=== PATIENT | female | born 2000 | race Caucasian/White ===

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

== ENCOUNTER 2020-05-08 15:07 | Outpatient (CLI) | payer OTHER, MEDICAID ==
--- NOTE | 2020-05-08 16:28 | Ultrasound Report ---
PROCEDURE: Pelvic Complete INDICATIONS: Menometrorhagia, per order no TV TECHNIQUE: Real-time transabdominal scanning was performed of the pelvic organs, with image documentation. COMPARISON: Pelvic ultrasound 04/30/2015, 05/14/2015 FINDINGS: Uterus: Uterus is normal in size at 9.2 x 3.1 x 4.8 cm. Endometrium measures 5 mm in combined thick ness. IUD is noted in appropriate position. Ovaries: Right ovary measures 2.6 x 1.3 x 3.1 cm, volume 5.6 cc. Less than 12 follicles are noted. V ascular flow is present. Left ovary measures 3.7 x 1.9 x 3.2 cm, volume 11.6 cc. Less than 12 follicl es are noted. There is a focus of decreased echogenicity within the left ovary measuring 2.4 x 1.4 x 2.1 cm. Other: No free pelvic fluid. IMPRESSION: 1. IUD in appropriate position. 2. Simple left ovarian cyst. Reviewed by: Awilda Henderson MD on 05/08/2020 4:27 PM PST Approved by: Awilda Henderson MD on 05/08/2020 4:27 PM PST Station ID: [id number]
== END 2020-05-08 15:08 | disposition home or self-care (01) ==
LOC: DI 15:07
PROVIDERS: ATTEND Family Medicine
DX: N83.292 Other ovarian cyst, left side (principal); Z97.5 Presence of (intrauterine) contraceptive device

== ENCOUNTER 2020-06-23 18:01 | Outpatient (CLI) | payer OTHER, MEDICAID ==
[2020-06-26 15:12] LABS: DHEA SULFATE 209 mcg/dL (51-321)
== END 2020-06-23 18:02 | disposition home or self-care (01) ==
LOC: LAB.S 18:01
PROVIDERS: ATTEND Family Medicine
DX: N92.1 Excessive and frequent menstruation with irregular cycle (principal); E28.2 Polycystic ovarian syndrome; E55.9 Vitamin D deficiency, unspecified; D64.9 Anemia, unspecified
CPT/HCPCS: 36415; 81599; 82306; 82626; 82627; 82728; 83520

== ENCOUNTER 2020-06-24 17:58 | Outpatient (CLI) | payer OTHER, MEDICAID | END 2020-06-24 17:59 | disposition home or self-care (01) | LOC: LAB.S 17:58 | PROVIDERS: ATTEND Pediatrics | DX: E27.8 Other specified disorders of adrenal gland (principal) | CPT/HCPCS: 36415; 81599; 82157; 84143; 84402; 84403 ==

== ENCOUNTER 2021-08-31 17:16 | Outpatient (CLI) | payer OTHER, MEDICAID ==
[2021-08-31 20:16] LABS: BASOPHILS # (AUTO) 0.1 10^3/uL (0.0-0.1); BASOPHILS % (AUTO) 1.1 %; EOSINOPHILS # (AUTO) 0.1 10^3/uL (0.0-0.7); HCT - HEMATOCRIT 39.9 % (37.0-47.0); HGB - HEMOGLOBIN 12.7 g/dL (12.0-16.0); LYMPHOCYTES # (AUTO) 2.8 10^3/uL (1.5-3.5); MEAN CORPUSCULAR HEMOGLOBIN 28.6 pg (27.0-31.0); MEAN CORPUSCULAR HGB CONC 31.8 g/dL (32.0-36.0); MEAN CORPUSCULAR VOLUME 89.9 fL (81.0-99.0); MEAN PLATELET VOLUME 8.7 fL (7.9-10.8); MONOCYTES # (AUTO) 0.6 10^3/uL (0.0-1.0); MONOCYTES % (AUTO) 9.1 %; NEUTROPHILS % (AUTO) 44.6 %; PLT - PLATELET COUNT 339 10^3/uL (130-450); RED BLOOD COUNT 4.44 10^6/uL (4.20-5.40); RED CELL DISTRIBUTION WIDTH 12.9 % (12.0-15.0); WHITE BLOOD COUNT 6.6 x10^3/uL (4.8-10.8)
[2021-08-31 20:39] LABS: ALBUMIN 4.1 g/dL (3.2-5.5); ALBUMIN/GLOBULIN RATIO 1.2 (1.0-2.2); BILIRUBIN,TOTAL 0.4 mg/dL (0.2-1.0); CALCIUM 9.4 mg/dL (8.5-10.3); CREATININE 0.7 mg/dL (0.4-1.0); CRP HIGH SENSITIVITY 1.9 mg/L; POTASSIUM 3.6 mmol/L (3.5-5.0); TOTAL PROTEIN 7.4 g/dL (6.7-8.2)
[2021-08-31 20:50] LABS: THYROID STIMULATING HORMONE 1.26 uIU/mL (0.34-5.60)
[2021-08-31 20:51] LABS: FREE T3 3.35 pg/mL (2.5-3.9)
[2021-08-31 20:52] LABS: FREE T4 (FREE THYROXINE) 0.72 ng/dL (0.58-1.64)
[2021-08-31 21:01] LABS: ESTIMATED AVERAGE GLUCOSE 97 mg/dL (70-100)
[2021-09-02 05:12] LABS: HOMOCYST(E)INE 13.8 umol/L (0.0-14.5)
== END 2021-08-31 17:17 | disposition home or self-care (01) ==
LOC: LAB.S 17:16
PROVIDERS: ATTEND Family Medicine
DX: M62.3 Immobility syndrome (paraplegic) (principal); M25.60 Stiffness of unspecified joint, not elsewhere classified; E55.9 Vitamin D deficiency, unspecified; G40.909 Epilepsy, unspecified, not intractable, without status epilepticus; R53.83 Other fatigue; N92.1 Excessive and frequent menstruation with irregular cycle; D64.9 Anemia, unspecified; E34.9 Endocrine disorder, unspecified
CPT/HCPCS: 36415; 80053; 82306; 82627; 82728; 83036; 83090; 83540; 84439; 84443; 84466; 84480; 84481; 85025; 86141

== ENCOUNTER 2022-04-11 18:30 | Emergency (ER) | payer OTHER, MEDICAID ==
[2022-04-11] MEDS ORDERED: SODIUM CHLORIDE 0.9% 1,000 ML IV STA (21:23)
--- NOTE | 2022-04-11 21:26 | ED Physician Documentation ---
History of Present Illness - Stated complaint Stated Complaint: COUGH/LETHARGIC - Chief complaint Chief Complaint: Resp - History obtained from History obtained from: Family - History of Present Illness Pain level max: 0 Pain level now: 0 - Additonal information Additional information: History is obtained from patient's father. Patient is a 21-year-old female with a history of traumatic brain injury and right-sided paralysis. She has been sick for the past 3 days. Went to the walk-in clinic today tested positive for influenza A. Concerned about dehydration so sent here for further evaluation. Has had some diarrhea but no vomiting. Decreased oral intake. T-max 100.9. Nothing makes it better or worse. Review of Systems Constitutional: reports: Fever Respiratory: reports: Cough GI: denies: Vomiting, Diarrhea Skin: denies: Rash Neurologic: denies: Seizure PD PAST MEDICAL HISTORY - Past Medical History Cardiovascular: None Neuro: CVA HEENT: None - Allergies Allergies/Adverse Reactions: Allergies Allergy/AdvReac Type Severity Reaction Status Date / Time clindamycin Allergy Rash Verified 04/11/22 18:47 - Social History Does the pt smoke?: No Smoking Status: Never smoker PD ED PE NORMAL - Vitals Vital signs reviewed: Yes - General General: No acute distress, Well developed/nourished - HEENT HEENT: PERRL, Moist mucous membranes, Pharynx benign - Neck Neck: Supple, no meningeal sign - Cardiac Cardiac: RRR, Strong equal pulses - Respiratory Respiratory: No respiratory distress, Clear bilaterally - Abdomen Abdomen: Soft, Non tender, Non distended - Derm Derm: Warm and dry, No rash - Neuro Neuro: Other (Alert) Results - Vitals Vitals: Vital Signs - 24 hr 04/11/22 04/11/22 04/11/22 18:41 21:41 22:54 Temperature 36.8 C 37.4 C Heart Rate 101 H 94 94 Respiratory 24 16 16 Rate Blood Pressure 94/71 96/54 L 104/70 O2 Saturation 96 96 98 Oxygen O2 Source Room air - Labs Labs: Laboratory Tests 04/11/22 04/11/22 21:35 21:35 WBC 5.0 RBC 5.24 Hgb 14.6 Hct 47.2 H MCV 90.1 MCH 27.9 MCHC 30.9 L RDW 13.6 Plt Count 239 MPV 9.1 Neut # (Auto) 3.4 Lymph # (Auto) 1.1 [place] # (Auto) 0.5 Eos # (Auto) 0.0 Baso # (Auto) 0.0 Absolute Nucleated RBC 0.00 Nucleated RBC % 0.0 Sodium 138 Potassium 3.8 Chloride 105 Carbon Dioxide 24 Anion Gap 9.0 BUN 20 Creatinine 1.1 H Estimated GFR (MDRD) 62 L Glucose 110 H Calcium 9.3 PD Medical Decision Making - ED course Complexity details: reviewed results, re-evaluated patient (Patient improved.), considered differential, d/w family ED course: Patient feels better after IV fluids. More alert. No significant findings on laboratory testing. She was positive for influenza A at the walk-in clinic earlier today. We will continue supportive care and have her follow-up with her doctor. Father counseled regarding signs and symptoms for which I believe and urgent re-evaluation would be necessary. Father with good understanding of and agreement to plan and is comfortable going home at this time This document was made in part using voice recognition software. While efforts are made to proofread this document, sound alike and grammatical errors may occur. Departure - Departure Disposition: 01 Home, Self Care Clinical Impression: Dehydration, Influenza A Condition: Good Instructions: ED Dehydration, ED Flu Follow-Up: Vashti Vicente MD [Primary Care Provider] - Within 1 week Comments: Please drink plenty of fluids at home. Please return if she worsens. Discharge Date/Time: 04/11/22 22:54
[2022-04-11 21:45] LABS: BASOPHILS % (AUTO) 0.2 %; HCT - HEMATOCRIT 47.2 % (37.0-47.0); HGB - HEMOGLOBIN 14.6 g/dL (12.0-16.0); LYMPHOCYTES # (AUTO) 1.1 10^3/uL (1.5-3.5); LYMPHOCYTES % (AUTO) 22.1 %; MEAN CORPUSCULAR HEMOGLOBIN 27.9 pg (27.0-31.0); MEAN CORPUSCULAR HGB CONC 30.9 g/dL (32.0-36.0); MEAN CORPUSCULAR VOLUME 90.1 fL (81.0-99.0); MEAN PLATELET VOLUME 9.1 fL (7.9-10.8); MONOCYTES # (AUTO) 0.5 10^3/uL (0.0-1.0); MONOCYTES % (AUTO) 10.3 %; NEUTROPHILS # (AUTO) 3.4 10^3/uL (1.5-6.6); NEUTROPHILS % (AUTO) 67.2 %; PLT - PLATELET COUNT 239 10^3/uL (130-450); RED BLOOD COUNT 5.24 10^6/uL (4.20-5.40); RED CELL DISTRIBUTION WIDTH 13.6 % (12.0-15.0)
[2022-04-11 21:53] LABS: CALCIUM 9.3 mg/dL (8.5-10.3); CREATININE 1.1 mg/dL (0.4-1.0); POTASSIUM 3.8 mmol/L (3.5-5.0)
[2022-04-11 22:55] VITALS: BP 104/70
== END 2022-04-11 22:54 | disposition home or self-care (01) ==
LOC: ED 18:30
DX: J10.1 Influenza due to other identified influenza virus with other respiratory manifestations (principal); E86.0 Dehydration; Z87.820 Personal history of traumatic brain injury; G81.91 Hemiplegia, unspecified affecting right dominant side
CPT/HCPCS: 36415; 80048; 85025; 96360; 99282

== ENCOUNTER 2022-07-28 15:28 | Outpatient (CLI) | payer OTHER, MEDICAID ==
--- NOTE | 2022-07-28 16:25 | XRAY Report ---
PROCEDURE: Abdomen 1 View X-Ray INDICATIONS: OBSTIPATION/CONSTIPATION/ABD DISTENTION TECHNIQUE: One view of the abdomen acquired. COMPARISON: None FINDINGS: Surgical changes and devices: Posterior lumbosacral fusion hardware. Right mid abdominal catheter is partially imaged. 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 IUD is present. Bowel: Several mildly prominent right abdominal bowel loops, likely proximal colon. Mid and distal co sharif appears decompressed. There is a paucity of small bowel gas seen. There is a lack of rectal gas. Soft tissues: No suspicious abdominal calcifications. Visualized solid organ contours appear normal in size. Bones: No suspicious bony lesions. 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 IMPRESSION: 1. Several air-filled and prominent right-sided bowel loops, presumed colon. Mechanical obstruction c annot be entirely excluded. 2. Several surgical changes as described. Reviewed by: Agata Samaniego MD on 07/28/2022 4:23 PM PDT Approved by: Agata Samaniego MD on 07/28/2022 4:23 PM PDT Station ID: [id number]
== END 2022-07-28 15:29 | disposition home or self-care (01) ==
LOC: DI.S 15:28
PROVIDERS: ATTEND Family Medicine
DX: R14.0 Abdominal distension (gaseous) (principal); K59.00 Constipation, unspecified

== ENCOUNTER 2022-08-09 11:34 | Outpatient (CLI) | payer OTHER, MEDICAID ==
[2022-08-09 14:46] LABS: BASOPHILS # (AUTO) 0.1 10^3/uL (0.0-0.1); EOSINOPHILS # (AUTO) 0.1 10^3/uL (0.0-0.7); HCT - HEMATOCRIT 43.1 % (37.0-47.0); HGB - HEMOGLOBIN 13.2 g/dL (12.0-16.0); LYMPHOCYTES # (AUTO) 2.6 10^3/uL (1.5-3.5); LYMPHOCYTES % (AUTO) 41.6 %; MEAN CORPUSCULAR HEMOGLOBIN 28.2 pg (27.0-31.0); MEAN CORPUSCULAR HGB CONC 30.6 g/dL (32.0-36.0); MEAN CORPUSCULAR VOLUME 92.1 fL (81.0-99.0); MEAN PLATELET VOLUME 9.1 fL (7.9-10.8); MONOCYTES # (AUTO) 0.6 10^3/uL (0.0-1.0); MONOCYTES % (AUTO) 8.9 %; NEUTROPHILS # (AUTO) 2.9 10^3/uL (1.5-6.6); NEUTROPHILS % (AUTO) 46.3 %; PLT - PLATELET COUNT 357 10^3/uL (130-450); RED BLOOD COUNT 4.68 10^6/uL (4.20-5.40); WHITE BLOOD COUNT 6.2 x10^3/uL (4.8-10.8)
[2022-08-09 15:20] LABS: FREE T3 3.67 pg/mL (2.5-3.9)
[2022-08-09 15:21] LABS: FREE T4 (FREE THYROXINE) 0.78 ng/dL (0.58-1.64)
[2022-08-09 15:22] LABS: THYROID STIMULATING HORMONE 1.79 uIU/mL (0.34-5.60)
[2022-08-09 15:25] LABS: ALBUMIN/GLOBULIN RATIO 1.1 (1.0-2.2); ALKALINE PHOSPHATASE 73 IU/L (42-121); ALT ALANINE AMINOTRANSFERASE 18 IU/L (10-60); AST ASPARTATE AMINOTRANSFERASE 12 IU/L (10-42); BILIRUBIN,TOTAL 0.4 mg/dL (0.2-1.0); BUN - BLOOD UREA NITROGEN 8 mg/dL (6-20); CALCIUM 9.3 mg/dL (8.5-10.3); CARBON DIOXIDE - CO2 25 mmol/L (21-32); CHLORIDE 111 mmol/L (101-111); CREATININE 0.7 mg/dL (0.4-1.0); CRP - C-REACTIVE PROTEIN < 1.0 mg/dL (0-1.0); FERRITIN 9.2 ng/mL (11.0-306.8); GFR - MDRD 104 (>89); GLUCOSE 93 mg/dL (70-100); POTASSIUM 4.1 mmol/L (3.5-5.0); SODIUM 141 mmol/L (135-145); TOTAL PROTEIN 7.5 g/dL (6.7-8.2)
[2022-08-09 15:26] LABS: PROLACTIN 13.78 ng/mL
[2022-08-09 20:35] LABS: ESTIMATED AVERAGE GLUCOSE 100 mg/dL (70-100); HEMOGLOBIN A1c% 5.1 % (4.27-6.07)
[2022-08-10 07:10] LABS: PROGESTERONE 0.7 ng/mL (.)
== END 2022-08-09 11:35 | disposition home or self-care (01) ==
LOC: LAB.S 11:34
PROVIDERS: ATTEND Family Medicine
DX: D64.9 Anemia, unspecified (principal); N92.1 Excessive and frequent menstruation with irregular cycle; G93.49 Other encephalopathy; R53.83 Other fatigue; E34.9 Endocrine disorder, unspecified; E72.11 Homocystinuria
CPT/HCPCS: 36415; 80053; 81001; 81003; 82626; 82627; 82670; 82728; 83036; 83090; 84144; 84146; 84439; 84443; 84480; 84481; 84482; 85025; 86140; 87086

== ENCOUNTER 2022-08-09 22:00 | Outpatient (CLI) | payer OTHER, MEDICAID ==
[2022-08-10 14:51] LABS: BILIRUBIN,URINE NEGATIVE (NEGATIVE); GLUCOSE, URINE (UA) NEGATIVE (NEGATIVE); KETONES,URINE (UA) NEGATIVE (NEGATIVE); LEUKOCYTE ESTERASE, URINE NEGATIVE (NEGATIVE); NITRITE,URINE NEGATIVE (NEGATIVE); OCCULT BLOOD,URINE NEGATIVE (NEGATIVE); PROTEIN,URINE NEGATIVE (NEGATIVE); UROBILINOGEN,URINE 0.2 (NORMAL) E.U./dL (NORMAL)
[2022-08-10 14:52] LABS: CLARITY,URINE SL. CLOUDY (CLEAR)
== END 2022-08-09 23:59 | disposition home or self-care (01) ==
LOC: LAB.R 22:00
PROVIDERS: ATTEND Family Medicine
DX: D64.9 Anemia, unspecified (principal); N92.1 Excessive and frequent menstruation with irregular cycle; G93.49 Other encephalopathy; R53.83 Other fatigue; E34.9 Endocrine disorder, unspecified; E72.11 Homocystinuria
CPT/HCPCS: 81001; 81003; 87086

== ENCOUNTER 2022-08-16 16:05 | Outpatient (CLI) | payer OTHER, MEDICAID ==
--- NOTE | 2022-08-17 09:38 | XRAY Report ---
PROCEDURE: Abdomen 1 View X-Ray INDICATIONS: OBSTIPATION, ABD PAIN TECHNIQUE: One view of the abdomen acquired. COMPARISON: X-ray abdomen, 08/01/2022 FINDINGS: Surgical changes and devices: Extensive postsurgical changes with surgical fusion of thoracolumbar sp ine and sacrum. Bowel: Bowel gas pattern is nonobstructive. Dilated bowel loops in the right abdomen is resolved. T here is abundant colonic gas. Soft tissues: No suspicious abdominal calcifications. Visualized solid organ contours appear normal in size. IUD in uterus. Bones: Dislocation of the right femoral, chronic. Deformity of the right femoral head. IMPRESSION: 1. Nonobstructive bowel gas pattern. 2. Extensive postsurgical changes in thoracolumbar spine and sacrum. 3. Deformity of the right femoral head and chronic right hip dislocation. Reviewed by: Chance Anne MD on 08/17/2022 9:37 AM PDT Approved by: Chance Anne MD on 08/17/2022 9:37 AM PDT Station ID: [id number]
== END 2022-08-16 16:06 | disposition home or self-care (01) ==
LOC: DI.S 16:05
PROVIDERS: ATTEND Family Medicine
DX: K59.00 Constipation, unspecified (principal); R10.9 Unspecified abdominal pain; R93.6 Abnormal findings on diagnostic imaging of limbs; Z98.1 Arthrodesis status

== ENCOUNTER 2022-09-20 08:40 | Day surgery (SDC) | payer OTHER, MEDICAID ==
[2022-09-20] MEDS ORDERED: LACTATED RINGERS 1,000 ML IV ONE (08:52)
--- NOTE | 2022-09-20 09:42 | ANESTHESIA ---
Pre-Anesthesia VS, & Labs - Diagnosis contraception management - Procedure IUD removal and replacement Vital Signs: Temp Pulse Resp BP Pulse Ox O2 Flow Rate 36.8 C 87 16 99/64 97 0 09/20/22 09:08 09/20/22 09:08 09/20/22 09:08 09/20/22 09:08 09/20/22 09:08 09/20/22 09:08 Height: 4 ft 10 in Weight (kg): 52.16 kg Body Mass Index: 24.0 BMI Classification: Normal - NPO >8 hours - Is Patient ?: Waiver signed Home Medications and Allergies Home Medications: Ambulatory Orders Ascorbic Acid [Vitamin C] 500 mg PO DAILY 09/13/22 Calm Magnesium Citrate Powder 2 gm PO DAILY 09/13/22 Cholecalciferol (Vitamin D3) [Vitamin D3] 1,000 unit PO DAILY 09/13/22 Glutamine [l-Glutamine] 2 gm PO DAILY 09/13/22 Laxaclear 25 - 28 gm PO DAILY 09/13/22 Liquid Iron 0.5 tsp PO DAILY 09/13/22 Melatonin 1 - 3 mg PO QPM PRN 09/13/22 Multivitamin 1 each PO DAILY 09/13/22 Norethindrone [Jencycla] 0.35 mg PO QPM 09/13/22 OXcarbazepine [Trileptal] 300 mg PO DAILY 09/13/22 OXcarbazepine [Trileptal] 450 mg PO QPM 09/13/22 Quercetin 800 mg PO DAILY PRN 09/13/22 Zinc Gluconate [Zinc] 30 mg PO PRN PRN 09/13/22 Zonisamide 200 mg PO QPM 09/13/22 clonazePAM [KlonoPIN] 0.25 - 0.5 mg PO PRN PRN 09/13/22 diazePAM [Diastat Acudial] 1 each RC PRN PRN 09/13/22 lamoTRIgine [LaMICtal] 3.5 tab PO BID 09/13/22 Ascorbic Acid [Vitamin C] 500 mg PO DAILY 09/13/22 Calm Magnesium Citrate Powder 2 gm PO DAILY 09/13/22 Cholecalciferol (Vitamin D3) [Vitamin D3] 1,000 unit PO DAILY 09/13/22 Glutamine [l-Glutamine] 2 gm PO DAILY 09/13/22 Laxaclear 25 - 28 gm PO DAILY 09/13/22 Liquid Iron 0.5 tsp PO DAILY 09/13/22 Melatonin 1 - 3 mg PO QPM PRN 09/13/22 Multivitamin 1 each PO DAILY 09/13/22 Norethindrone [Jencycla] 0.35 mg PO QPM 09/13/22 OXcarbazepine [Trileptal] 300 mg PO DAILY 09/13/22 OXcarbazepine [Trileptal] 450 mg PO QPM 09/13/22 Quercetin 800 mg PO DAILY PRN 09/13/22 Zinc Gluconate [Zinc] 30 mg PO PRN PRN 09/13/22 Zonisamide 200 mg PO QPM 09/13/22 clonazePAM [KlonoPIN] 0.25 - 0.5 mg PO PRN PRN 09/13/22 diazePAM [Diastat Acudial] 1 each RC PRN PRN 09/13/22 lamoTRIgine [LaMICtal] 3.5 tab PO BID 09/13/22 Allergies/Adverse Reactions: Allergies Allergy/AdvReac Type Severity Reaction Status Date / Time clindamycin Allergy Rash Verified 04/11/22 18:47 Anes History & Medical History - Anesthetic History Anesthesia Complications: reports: No previous complications - Medical History Cardiovascular: reports: None, Murmur Pulmonary: reports: None Gastrointestinal: reports: None Urinary: reports: Incontinence Neuro: reports: CVA Musculoskeletal: reports: Hemiplegia, Scoliosis, Other Endocrine/Autoimmune: reports: None Skin: reports: None Smoking Status: Never smoker - Surgical History Neurologic: reports: 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
[2022-09-20] MEDS ORDERED: LIDOCAINE-MPF 1% 30 ML VIAL ONE (10:10)
[2022-09-20] MEDS ORDERED: SILVER NITRATE APPLICATOR TOP ONE (10:11)
[2022-09-20] MEDS ORDERED: MIDAZOLAM 10 MG/5 ML UDC PO ONE (10:12)
[2022-09-20] MEDS ORDERED: ATROPINE ABBOJECT 1 MG/10 ML SYRINGE IVP PRN (10:14)
[2022-09-20] MEDS ORDERED: ONDANSETRON 4 MG/2 ML VIAL IVP PRN (10:14)
[2022-09-20] MEDS ORDERED: METOCLOPRAMIDE 10 MG/2 ML VIAL IVP PRN (10:14)
[2022-09-20] MEDS ORDERED: NALOXONE 0.4 MG/ML VIAL IVP PRN (10:14)
[2022-09-20] MEDS ORDERED: HYDROmorphone 0.5 MG/0.5 ML SYRINGE IVP PRN (10:14)
[2022-09-20] MEDS ORDERED: fentaNYL 100 MCG/2 ML VIAL IVP PRN (10:14)
[2022-09-20] MEDS ORDERED: ePHEDrine 50 MG/ML VIAL IVP PRN (10:14)
[2022-09-20] MEDS ORDERED: MORPHINE 2 MG/ML CARPUJECT IVP PRN (10:14)
[2022-09-20] MEDS ORDERED: PROPOFOL 200 MG/20 ML VIAL IVP ONE (10:31)
[2022-09-20] MEDS ORDERED: LEVONORGESTREL 20 MCG/24H IUD IY ONE ×2 (10:32→11:46)
[2022-09-20] MEDS ORDERED: LACTATED RINGERS 1,000 ML IV SCH (11:00)
[2022-09-20] MEDS ORDERED: LIDOCAINE 1% 50 ML MDV SUBQ ONE ×2 (11:45)
[2022-09-20] MEDS ORDERED: HYDROcod/ACETAM 5/325 MG TABLET PO PRN (12:15)
[2022-09-20] MEDS ORDERED: LACTATED RINGERS 600 ML IV ONE (12:19)
--- NOTE | 2022-09-20 12:20 | OPERATIVE REPORT ---
Operative Report - General Procedure Date: 09/20/22 Planned Procedure: IUD removal and replacement Pap smear Possible hysteroscopy Pre-Op Diagnosis: Contraceptive management Procedure Performed: IUD removal and replacement Pap smear hysteroscopy Post Op Diagnosis: Contraceptive management, IUD removal and replacement. - Procedure Note Primary Surgeon: Dav Turcios MD Anesthesia Provider: Alma Delia Cevallos CRNA Anesthesia Technique: General LMA Pathology: None IV Fluids (mL): 400 Estimated Blood Loss (mL): 10 Complications: None - Other Other Information/Narrative: Patient was taken to the procedure room and placed in dorsal lithotomy position. Hibiclens was used to clean the operative area. [place] speculum was palced in the vagina and the cervix was visualized. There were no IUD strings protruding from the cervical os. Attempt was made to remove these with an IUD hook as well as a Peggy forcep. No IUD was felt, so I used an ultrasound and can visualize the IUD in the uterus. The anterior lip the cervix was then grasped with a single-tooth tenaculum and a cervical block was performed with 1% lidocaine. The cervix was non-stenotic and allowed the easy passage of dilators. Hysteroscope was then used to hydrodilate using normal saline distention media. Hysteroscope was advanced without difficulty using hydrodistention. Upon entry into the internal cervical os there was noted to be normal-appearing endometrium within the uterus. Bilateral tubal ostia were noted. IUD was seen in the uterus with strings protruding towards the fundus. Graspers were inserted through the operative channel and the IUD was grasped. The hysteroscope and IUD were removed from the uterus. Hysteroscope was then removed. The uterus was sounded to 7.5 cm. The IUD was inserted through the cervical os and deployed to the first marker. After allowing it time to expand, is advanced to the fundus and deployed the remainder of the way. Strings were trimmed above the level of the hymen. All instruments were removed from vagina, and good hemostasis was noted. Pap smear was then collected and sent to pathology. Fluid deficit 100. Mirena due for removal 09/20/2030 or when bleeding control lessens. Lot: [id number]
[2022-09-20] MEDS ORDERED: KETOROLAC 30 MG/ML VIAL IVP PRN (12:24)
[2022-09-20] MEDS ORDERED: KETOROLAC 15 MG/ML VIAL ONE (12:32)
[2022-09-20 13:36] VITALS: BP 101/82
--- NOTE | 2022-09-20 14:14 | ANESTHESIA POST OP EVALUATION ---
Anesthesia Post Eval - Post Anesthesia Eval Vitals: Last Vital Signs Temp 36.0 C L 09/20/22 13:20 Pulse 81 09/20/22 13:20 Resp 16 09/20/22 13:20 BP 101/82 H 09/20/22 13:20 Pulse Ox 100 09/20/22 13:20 O2 Flow Rate 0 09/20/22 09:08 CV Function Including HR & BP: Stable Pain Control: Satisfactory Nausea & Vomiting: Negative Mental Status: Baseline Respiratory Status: Airway Patent Hydration Status: Satisfactory Anesthesia Complications: None
== END 2022-09-20 08:41 | disposition home or self-care (01) ==
LOC: SDS 08:40
PROVIDERS: ATTEND Obstetrics & Gynecology
PROC: 0UH97HZ Insertion of Contraceptive Device into Uterus, Via Natural or Artificial Opening (ICD-10-PCS; 2022-09-20)
PROC: 0UPD8HZ Removal of Contraceptive Device from Uterus and Cervix, Via Natural or Artificial Opening Endoscopic (ICD-10-PCS; principal; 2022-09-20 09:45)
DX: Z30.433 Encounter for removal and reinsertion of intrauterine contraceptive device (principal); Z30.8 Encounter for other contraceptive management; F82 Specific developmental disorder of motor function; Z99.3 Dependence on wheelchair
CPT/HCPCS: 58300; 58562; A9270; J7120; J7298